=== PATIENT | male | born 1980 | race Caucasian/White ===

== ENCOUNTER 2018-12-14 05:36 | Day surgery (SDC) | payer OTHER ==
[2018-12-14] MEDS ORDERED: LACTATED RINGER'S 1,000 ML IV* (06:00)
[2018-12-14] MEDS ORDERED: GELATIN SIZE 100 SPONGE (06:39)
[2018-12-14] MEDS: CEFAZOLIN 2 GM/50 ML (PMX) 50 ML IVPB (06:59)
[2018-12-14] MEDS ORDERED: SEVOFLURANE 15 MIN (07:00)
[2018-12-14] MEDS ORDERED: ROCURONIUM 50 MG INJ (07:00)
[2018-12-14] MEDS ORDERED: PROPOFOL 200 MG INJ (07:00)
[2018-12-14] MEDS ORDERED: SUCCINYLCHOLINE CHLORIDE 100 MG/5 ML SYG IV (07:06)
[2018-12-14] MEDS ORDERED: PROPOFOL 20 ML (07:06)
[2018-12-14] MEDS ORDERED: LIDOCAINE 2% (SDV) 5 ML INJ (07:06)
[2018-12-14] MEDS ORDERED: MIDAZOLAM 1 MG/ML 2 ML INJ (07:06)
[2018-12-14] MEDS ORDERED: DEXAMETHASONE 4 MG/ML 5 ML INJ (07:30)
[2018-12-14] MEDS ORDERED: FAMOTIDINE 20 MG INJ (07:30)
[2018-12-14] MEDS ORDERED: ONDANSETRON 4 MG INJ (07:30)
[2018-12-14] MEDS ORDERED: CEFAZOLIN 1 GM INJ (07:33)
[2018-12-14] MEDS ORDERED: hydrALAzine 20 MG INJ (07:45)
[2018-12-14] MEDS ORDERED: hydrALAzine 20 MG INJ IV (08:00)
[2018-12-14] MEDS ORDERED: PROCHLORPERAZINE 10 MG INJ IV (08:00)
[2018-12-14] MEDS ORDERED: EPHEDrine SULFATE 50 MG/5 ML SYG IV (08:00)
[2018-12-14] MEDS ORDERED: HYDROmorphONE 1 MG/5 ML IV SYRINGE IV (08:00)
[2018-12-14] MEDS ORDERED: LABETALOL HCL 20MG INJ IV (08:00)
[2018-12-14] MEDS ORDERED: FENTAnyl 50 MCG/ML VIAL IV ×3 (08:00)
[2018-12-14] MEDS ORDERED: DIPHENHYDRAMINE 50 MG INJ IV (08:00)
[2018-12-14] MEDS ORDERED: MEPERIDINE 25 MG INJ IV (08:00)
[2018-12-14] MEDS ORDERED: SUGAMMADEX SODIUM 200 MG/2 ML VIAL IV (08:07)
[2018-12-14] MEDS ORDERED: HYDROmorphONE 2 MG/ML SYG (08:12)
[2018-12-14] MEDS: POLYMYXIN/BACITRACIN 1L IRRIG (08:15)
[2018-12-14] MEDS: BUPIVACAINE 0.25% (MPF) 30 ML INJ (08:15)
[2018-12-14] MEDS: THROMBIN 5000 UNIT VIAL (08:35)
[2018-12-14] MEDS: HYDROmorphONE 1 MG/5 ML IV SYRINGE IV ×3 (09:14→09:37)
[2018-12-14] MEDS ORDERED: ONDANSETRON 4 MG INJ IV (09:30)
[2018-12-14] MEDS ORDERED: OXYCODONE/ACETAMINOPHEN (5/325) TAB PO ×2 (09:30)
[2018-12-14] MEDS: ONDANSETRON 4 MG INJ IV (09:37)
[2018-12-14] MEDS: OXYCODONE/ACETAMINOPHEN (5/325) TAB PO (09:52)
[2018-12-14] MEDS: METOCLOPRAMIDE 10 MG INJ IV (11:17)
== END 2018-12-14 10:49 | disposition home or self-care (01) ==
LOC: REC 05:36 → SDS 05:36
DX: M51.26 Other intervertebral disc displacement, lumbar region (principal)
CPT/HCPCS: 63030; 72020; 86850; 86900; 86901; 86920; 88304; 97162